=== PATIENT | male | born 1955 | race Caucasian/White ===

== ENCOUNTER 2022-10-22 12:49 | Emergency (ER) | payer OTHER, SELFPAY ==
--- NOTE | ~2022-10-22 | CT_ITS ---
EXAMINATION: CT abdomen pelvis wo con DATE: 10/22/2022 13:40 INDICATION: Kidney stone TECHNIQUE: Computed tomography (CT) of the abdomen and pelvis was performed without intravenous contr ast. Automated exposure control and iterative reconstruction technique were employed. The dose-length product was 370.56 mGy-cm. COMPARISON: None FINDINGS: Emphysema with bronchiectatic changes at the lung bases. Atelectasis/scarring in the anterior right m iddle lobe. Heart size is normal. Atherosclerotic coronary artery calcific location. No pericardial o r pleural effusion. Peripherally calcified gallstone in the otherwise normal gallbladder. No intra or extrahepatic biliary ductal dilation. Punctate splenic calcification consistent with old granulomato us disease. Some punctate calcification at the tail of the pancreas which may represent sequela of ch ronic pancreatitis. Bilateral adrenal glands are normal. Bilateral nephrolithiasis with nonobstructin g 1 mm stone at the lower pole of the right kidney and at least partially obstructing 5 mm stone in t he proximal left ureter. Mild left hydronephrosis. No other urolithiasis. Moderate diverticulosis lea ng the sigmoid colon without adjacent inflammatory stranding to suggest diverticular colitis. Small b owel and appendix are normal. Distended bladder is otherwise unremarkable. Calcifications in the mild ly enlarged prostate. Small fat-containing right inguinal hernia. No free intraperitoneal gas or flui d. No pathologically enlarged abdominal or pelvic lymphadenopathy. Mild lumbar dextrocurvature with s evere lumbar and lower thoracic spondylosis. IMPRESSION: 1. Bilateral nephrolithiasis with at least partially obstructing 5 mm proximal left ureteral stone wi th mild left hydronephrosis. 2. Cholelithiasis. 3. Sigmoid diverticulosis. 4. Small fat-containing right inguinal hernia. 5. Emphysema and bronchiectatic changes at the bilateral lung bases. Reviewed, dictated and finalized at location A. S OVERSEER IMPRESSION: 1. Bilateral nephrolithiasis with at least partially obstructing 5 mm proximal left ureteral stone with mild left hydronephrosis. 2. Cholelithiasis. 3. Sigmoid diverticulosis. 4. Small fat-containing right inguinal hernia. 5. Emphysema and bronchiectatic changes at the bilateral lung bases.
[2022-10-22 13:04] VITALS: BP 155/97; PULSE 98; RESP 20; TEMP 36.8; O2SAT 96
--- NOTE | 2022-10-22 13:12 | ED.MALEGU ---
HPI - Male Genitourinary General Chief complaint: Urogenital-Male Stated complaint: flank pain Time Seen by Provider: 10/22/22 13:11 Source: patient and RN notes reviewed Mode of arrival: ambulatory Limitations: no limitations History of Present Illness HPI Narrative: 67 years old white male drove himself to the emergency room because of left kidney stone. Patient had pain at the left flank area radiating to left testicle started last night, went to [facility] today and had a diagnosis of 5 mm stone left ureter. Because the do not have urologist and unable to transfer him to another hospital, patient declined to be transferred by ambulance and drove himself to our emergency room. Patient reports that his pain resolved on ibuprofen. Currently feeling okay. I did explain to the patient that 5 mm stone cannot be passed with time and as long as he is feeling pain-free at this time can go home on pain medication nausea medication. Patient is concerned about the possibility of obstruction and that what he is being told in the other hospital. He denies any fever or urinary symptoms. Had history of kidney stone Related Data Allergies Allergy/AdvReac Type Severity Reaction Status Date / Time amoxicillin Allergy Rash Verified 10/22/22 13:08 Review of Systems Review of Systems: All systems reviewed & are unremarkable except as noted in HPI and below Exam Narrative: General appearance: Well-developed, well-nourished. Does not look in pain or distress Skin: Normal color Head: Normocephalic, nontraumatic Eyes: Clear conjunctiva ENT: Oropharynx normal, ears normal, nose normal Neck: Supple, nontender Chest and respiratory: Airway patent, no respiratory distress, no accessory muscle use Heart: Regular rate/rhythm Abdomen: Soft, nontender, no organomegaly, quiet bowel sounds Vascular: Normal peripheral pulses, normal capillary refill. 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, no gross motor deficit Course Vital Signs Vital signs: Vital Signs Temperature 36.8 C 10/22/22 13:04 Pulse Rate 98 10/22/22 13:04 Respiratory Rate 20 10/22/22 13:04 Blood Pressure 155/97 H 10/22/22 13:04 Pulse Oximetry 96 10/22/22 13:04 Oxygen Delivery Room Air 10/22/22 13:04 Temperature 36.8 C 10/22/22 13:04 Pulse Rate 102 H 10/22/22 13:18 Respiratory Rate 16 10/22/22 13:18 Blood Pressure 167/99 H 10/22/22 13:18 Pulse Oximetry 97 10/22/22 13:18 Oxygen Delivery Room Air 10/22/22 13:04 MDM - Male Genitourinary MDM Narrative Medical decision making narrative: Patient is 67 years old white male came from another facility after being diagnosed of 5 mm left ureteric stone. Patient was told that he have stone obstruction and is serious and need to be seen by urologist as soon as possible. Patient refused to come to another hospital by ambulance and drove himself to our emergency room without the ED records. Patient is telling me that he is feeling okay after taking ibuprofen. Declined any pain medication at this time. He denies any fever, chills, nausea, vomiting. Labs, UA, CT abdomen pelvis without contrast ordered. Work-up showed 5 mm proximal left ureteral stone with mild hydronephrosis. Urine analysis showed no acute abnormalities. Patient was notified about the result and did not seriousness about the hydronephrosis at this time, and he agreed to follow-up with urologist as outpatient Differential Diagnosis Differential diagnosis: Likely urinary tract infection and other (Urinary tract infection, kidney stone) Lab Data 10/22/22 13:19 10/22/22 13:
[2022-10-22 13:18] VITALS: BP 167/99; PULSE 102; RESP 16; O2SAT 97
[2022-10-22] MEDS: SODIUM CHLORIDE 0.9% IV 1,000 ML 999 ML IV CONT (13:27)
[2022-10-22 13:33] LABS: Basophils Absolute Auto 0.1 K/mm3 (0.0-0.1); Basophils Percent Auto 0.7 % (0.2-1.2); Eosinophils Absolute Auto 0.2 K/mm3 (0-0.3); Eosinophils Percent Auto 1.4 % (0-4.4); Hemoglobin 15.9 g/dL (14.0-18.0); Immature Granulocyte Absolute 0.05 K/mm3 (0.00-0.031); Immature Granulocyte Percent A 0.5 % (0-0.5); Lymphocytes Absolute Auto 1.88 K/mm3 (0.9-3.2); Lymphocytes Percent Auto 17.3 % (18.3-44.2); Mean Corpuscular HGB Conc 34.6 g/dl (32-36); Mean Corpuscular Hemoglobin 30.3 pg (26-34); Mean Corpuscular Volume 87.8 fl (80-100); Mean Platelet Volume 9.2 fl (7.4-10.4); Monocytes Absolute Auto 0.9 K/mm3 (0.1-0.6); Neutrophils Absolute Auto 7.9 K/mm3 (1.3-6.7); Neutrophils Percent Auto 72.1 % (45.5-73.1); Platelet Count Result 239 k/mm3 (150-375); Red Blood Count 5.24 M/mm3 (4.6-6.20); Red Cell Distribution Width 13.2 % (11.5-14.5); White Blood Count 10.9 K/mm3 (4.5-10.0)
[2022-10-22 13:39] LABS: Alanine Aminotransferase 27 U/L (6-50); Albumin Level 4.7 g/dL (3.5-5.1); Alkaline Phosphatase 50 U/L (38-126); Anion Gap 7 mmol/L (8-16); Aspartate Amino Transferase 27 U/L (17-59); Bilirubin,Total 0.5 mg/dL (0.2-1.3); Blood Urea Nitrogen 18 mg/dL (9-20); Calcium 9.2 mg/dL (8.4-10.2); Carbon Dioxide 29 mmol/L (22-30); Chloride 101 mmol/L (98-107); Estimated CRCL calculation 50 ml/min; Estimated Glomerular Filt Rate 55; Glucose 133 mg/dL (65-110); Potassium 3.9 mmol/L (3.4-5.0); Sodium 137 mmol/L (137-145)
[2022-10-22] MEDS: TAMSULOSIN HCL 0.4 MG CAPSULE PO (13:43)
[2022-10-22 14:22] LABS: Appearance Urine Clear (Clear); Bilirubin Urine Negative (Negative); Blood Urine 1+ (Negative); Color Urine Yellow (Yellow); Glucose Urine UA Negative (Negative); Ketones Urine Negative (Negative); Leukocyte Esterase Ur Negative LEU/UL (Negative); Nitrate Urine Negative (Negative); Protein Urine Negative (Negative); Urobilinogen Urine 0.2 mg/dL (<2.0); pH Urine 6.5 (5.0-9.0)
[2022-10-22 14:32] LABS: RBC Urine 0-2 /hpf (0-2); Squamous Epithelial Cell Urine Rare /hpf (Few); WBC Urine 0-3 /hpf
[2022-10-22 14:33] LABS: Add Urine Microscopic? YES
== END 2022-10-22 15:02 | disposition home or self-care (01) ==
PROVIDERS: Emergency Medicine; Emergency Provider Emergency Medicine; PCP Family Medicine
DX: N13.2 Hydronephrosis with renal and ureteral calculous obstruction (principal); K80.20 Calculus of gallbladder without cholecystitis without obstruction; K57.90 Diverticulosis of intestine, part unspecified, without perforation or abscess without bleeding; K40.90 Unilateral inguinal hernia, without obstruction or gangrene, not specified as recurrent; J43.9 Emphysema, unspecified
CPT/HCPCS: 36415; 74176; 80053; 81001; 85025; 96360; 99284; A9270; J7030

== ENCOUNTER → 2022-10-31 15:45 | Outpatient (CLI) | payer OTHER, SELFPAY ==
--- NOTE | ~2022-10-31 | XR_ITS ---
EXAM: XR abdomen/kub 1V DATE: 10/31/2022 16:01 HISTORY: Lt sided Calculus of Ureter . COMPARISON: CT abdomen and pelvis 10/22/2022. FINDINGS: Clear lung bases. Normal bowel gas pattern. No organomegaly. Previously detected left mid ureteral calculus is not confidently identified. Vascular calcifications. No definite ossification ov erlying the renal shadows. Pelvic phleboliths. Interbody device at L2-3. Multilevel severe degenerati ve lumbar disc disease with large bridging osteophytes. IMPRESSION: Previously detected proximal left ureteral calculus is not identified. Reviewed, dictated and finalized at location K. R PANEL INSTALLATION SUPERVISOR IMPRESSION: Previously detected proximal left ureteral calculus is not identifi ed.
== END ==
PROVIDERS: PCP Family Medicine; Visit Provider Urology
DX: N20.1 Calculus of ureter (principal)
CPT/HCPCS: 74018